=== PATIENT | male | born 1970 | race Caucasian/White ===

== ENCOUNTER 2021-11-25 05:36 | Outpatient (CLI) | payer BC ==
[~2021-11-25] VITALS: Ht 190.5 cm; Wt 148.6 kg
[2021-11-25] MEDS ORDERED: METF-397 PO ×2 (14:01→14:07)
[2021-11-25] MEDS ORDERED: ACET-2840 PO (14:01)
[2021-11-25] MEDS ORDERED: VALS80TA31 PO (14:01)
[2021-11-25] MEDS ORDERED: GABA-486 PO (14:01)
[2021-11-25] MEDS ORDERED: MTP25TSR PO (14:01)
[2021-11-25] MEDS ORDERED: DOCU100T7 PO (14:01)
[2021-11-25] MEDS ORDERED: ROSU10TA28 PO (14:01)
[2021-11-25] MEDS ORDERED: MULT-593 PO (14:01)
[2021-11-25] MEDS ORDERED: AMLO-250 PO (14:01)
[2021-11-25] MEDS ORDERED: INSU100I10 SQ (14:01)
[2021-11-25] MEDS ORDERED: PANT40TA2 PO (14:01)
[2021-11-25] MEDS ORDERED: ALLO300T2 PO (14:07)
[2021-11-25] MEDS ORDERED: ATOR40TA70 PO (14:07)
[2021-11-25] MEDS ORDERED: EMPA10TA PO (14:07)
[2021-11-25] MEDS ORDERED: NAPR500T8 PO (14:07)
== END 2021-11-25 14:53 | disposition home or self-care (01) ==
LOC: PREOP 05:36
PROVIDERS: ATTEND Surgery
DX: Z01.818 Encounter for other preprocedural examination (principal)

== ENCOUNTER 2021-12-02 09:19 | Day surgery (SDC) | payer BC ==
[~2021-12-02] VITALS: Ht 190.5 cm; Wt 148.6 kg
[~2021-12-02 09:19] MED LIST: ACET-2840 PO; ALLO300T2 PO; AMLO-250 PO; ATOR40TA70 PO; DOCU100T7 PO; EMPA10TA PO; GABA-486 PO; INSU100I10 SQ; METF-397 PO; MTP25TSR PO; MULT-593 PO; NAPR500T8 PO; PANT40TA2 PO; ROSU10TA28 PO; VALS80TA31 PO
[2021-12-02] MEDS ORDERED: LACTATED RINGERS 1,000 ML IV STA (09:26)
[2021-12-02] MEDS ORDERED: LIDOCAINE JELLY 2% 6 ML SYRINGE MM PRN (09:30)
[2021-12-02 09:35] VITALS: BP 164/96
--- NOTE | 2021-12-02 10:18 | Progress Note-Pre Operative ---
Pre-Operative Progress Note H&P Reviewed The H&P was reviewed, patient examined and no changes noted. Date Seen by Provider: Dec 02, 2021 Time Seen by Provider: 10:00 Date H&P Reviewed: Dec 02, 2021 Time H&P Reviewed: 10:00 Pre-Operative Diagnosis: screening colo, cologaurd+ MARIA E HOLLOWAY MD Dec 02, 2021 10:18
--- NOTE | 2021-12-02 10:20 | Discharge Inst-Surgical ---
D/C Lap Instructions-JEWEL Follow Up Activity as tolerated High Fiber Diet 25g or more per day Avoid Alcohol, Caffeine, Spicy [place] and Acid foods. Drink 64 fluid oz or more of fluids per day. Symptoms to Report: Fever over 101 degree F, Nausea/Vomiting If any problems/questions: Contact your physician or go to Emergency Room MARIA E HOLLOWAY MD Dec 02, 2021 10:20
[2021-12-02] MEDS ORDERED: ONDANSETRON 4 MG (ZOFRAN) ORAL DISSOLVE TAB PO PRN (10:30)
[2021-12-02] MEDS ORDERED: ONDANSETRON 4 MG/2 ML (SDV) Z0FRAN IVP PRN (10:30)
[2021-12-02] MEDS ORDERED: MIDAZOLAM 2 MG/2 ML (VERSED) VIAL ONE (10:43)
[2021-12-02] MEDS ORDERED: PROPOFOL INJECTION 50 ML IV ONE (10:43)
[2021-12-02 11:25] VITALS: BP 128/67
[2021-12-02 11:30] VITALS: BP 149/79
[2021-12-02 11:35] VITALS: BP 149/79
--- NOTE | 2021-12-02 11:44 | Progress Note-Post Operative ---
Post-Operative Progess Note Surgeon (s)/Purse Seiner (s) Surgeon MARIA E HOLLOWAY MD Purse Seiner: none Pre-Operative Diagnosis screening colo, cologaurd+ Post-Operative Diagnosis chronic stage 2 ext and int hemorrhoids. Procedure & Operative Findings Date of Procedure 12/02/21 Procedure Performed/Findings colonoscopy Anesthesia Type mac Estimated Blood Loss Estimated blood loss (mL): minimal Specimens/Packing Specimens Removed none MARIA E HOLLOWAY MD Dec 02, 2021 11:44
[2021-12-02 11:55] VITALS: BP 140/72
--- NOTE | 2021-12-02 12:08 | Anesthesia-General Post-Op ---
MAC Patient Condition Mental Status/LOC: Same as Preop Cardiovascular: Satisfactory Nausea/Vomiting: Absent Respiratory: Satisfactory Pain: Controlled Complications: Absent Post Op Complications Complications None Follow Up Care/Instructions Patient Instructions None needed. Anesthesiology Discharge Order Discharge Order Patient is doing well, no complaints, stable vital signs, no apparent adverse anesthesia problems. No complications reported per nursing. ED PARKER CRNA Dec 02, 2021 12:08
--- NOTE | 2021-12-02 16:40 | OPERATIVE REPORT ---
DATE OF SERVICE: 12/02/2021 ATTENDING PRIMARY CARE PHYSICIAN: Dr. Khari Rodriguez. PREOPERATIVE DIAGNOSIS: Screening colonoscopy with a positive Cologuard test. POSTOPERATIVE DIAGNOSIS: Chronic stage II external and internal hemorrhoids. Remainder of the rectum and colon were normal. PROCEDURE PERFORMED: Colonoscopy. SURGEON: Maria E Holloway MD. ANESTHESIA: Monitored anesthesia care. ESTIMATED BLOOD LOSS: Minimal. FINDINGS: Chronic stage II external and internal hemorrhoids. Remainder of the rectum and colon were normal. DISPOSITION: The patient tolerated the procedure well. INDICATIONS FOR PROCEDURE: The patient is a 51-year-old male in need of a screening colonoscopy. He has not had a colonoscopy up to this point in his life. He states that he does not have any major issues with diarrhea nor constipation as well as no red blood per rectum nor any dark tarry stools; however, he did have a Cologuard test, which was positive. He does report that his father was diagnosed with some form of anal or rectal cancer at an advanced age around 80 years of age. The patient was brought to the endoscopy suite and laid in the left lateral decubitus position. After adequate IV pain and sedative medications and monitored anesthesia care, digital rectal examination was performed. Chronic stage II external and internal hemorrhoids were identified, which were not actively edematous nor inflamed and no bleeding. Normal sphincter tone was felt and there were no palpable masses. Prostate gland was palpable and appeared normal. The endoscope was then intubated in the anus and rectum gently insufflated. The endoscope was then advanced to the valves of Hough of the rectum with no polyps or any neoplasms identified. Through the sigmoid colon, there was no diverticulosis identified. We then proceeded through the remainder of the descending, transverse and ascending colon to the cecum, which were normal. There were no polyps or any neoplasms identified throughout the colon or rectum. Endoscope was slowly withdrawn while taking a second look and suctioning of residual air with no additional findings. The patient tolerated the procedure well. We will recommend incorporation of a high-fiber diet with a fiber supplement, which would equal or exceed 30 grams daily as well as significant amounts of water to promote soft stools on a daily basis and if he is asymptomatic, it is up to him as to determine when to do his followup colonoscopy. Again, he is unsure if his father had a rectal or anal cancer and if so, we would recommend a followup colonoscopy every five years; however, if he is unsure and asymptomatic and medically compliant, he may wait 10 years if he still chooses to. Job ID: [id number] DocumentID: [id number] Dictated Date: 12/02/2021 11:30:45 [employer] Educator Date: 12/02/2021 16:38:57 Dictated By: MARIA E HOLLOWAY MD
== END 2021-12-02 12:05 | disposition home or self-care (01) ==
LOC: ENDO 09:19
PROVIDERS: ATTEND Surgery
DX: K64.1 Second degree hemorrhoids (principal); K64.4 Residual hemorrhoidal skin tags; Z80.0 Family history of malignant neoplasm of digestive organs; E11.9 Type 2 diabetes mellitus without complications; E78.5 Hyperlipidemia, unspecified; M10.9 Gout, unspecified; Z79.84 Long term (current) use of oral hypoglycemic drugs; Z79.899 Other long term (current) drug therapy; Z87.891 Personal history of nicotine dependence; E66.01 Morbid (severe) obesity due to excess calories; Z68.41 Body mass index [BMI] 40.0-44.9, adult